=== PATIENT | male | born 1975 | race Caucasian/White ===

== ENCOUNTER 2021-06-30 11:50 | Inpatient (IN) | payer MEDICAID, OTHER, SELFPAY ==
[2021-06-30] VITALS (11 sets, daily range): BP systolic 117–149; BP diastolic 72–88; PULSE 82–125; RESP 13–30; TEMP 37.2–39.7; O2SAT 93–97; BMI 32.5
--- NOTE | 2021-06-30 | ECG_ITS ---
Test Reason : fever Blood Pressure : / mmHG Vent. Rate : 088 BPM Atrial Rate : 088 BPM P-R Int : 170 ms QRS Dur : 106 ms QT Int : 390 ms P-R-T Axes : 037 -01 007 degrees QTc Int : 471 ms Normal sinus rhythm Intra-ventricular conduction delay Minimal voltage criteria for LVH, may be normal variant ( R in aVL ) Borderline ECG When compared with ECG of 30-JUN-2021 14:20, No previous ECGs available Referred By: Harpal Miller Electronically Signed By:JED MARTINEZ MD
--- NOTE | ~2021-06-30 | CT_ITS ---
EXAMINATION: CT CHEST WITH CONTRAST CLINICAL INFORMATION: Persistent fevers. Follow-up pneumonia. COMPARISON: Previous chest x-ray 06/30/2021 TECHNIQUE: Multidetector volumetric CT imaging of the chest was obtained after the administration of 65 mL of Omnipaque 350 intravenous contrast without immediate adverse reactions. Axial MIP volume rendering provided. Sagittal and coronal reformatted images were obtained. This CT examination was performed using dose optimization techniques as appropriate, variously including the following: *Automated exposure control *Adjustment of mA and/or kV according to patient size (this includes techniques or standardized protocols for targeted exams where dose is matched to indication/reason for exam; i.e. extremities or head) *Use of iterative reconstruction technique DLP: 190 mGy-cm FINDINGS: LUNGS: Evaluation of the lungs is limited due to artifact from respiratory motion. There is dense consolidation with air bronchograms in the right lower lobe. There may be some involvement of the superior segment of the right upper lobe as well. The lungs are otherwise clear. No endobronchial or endotracheal lesion is seen. MEDIASTINUM: There are multiple mediastinal lymph nodes. Larger lymph nodes are upper normal in size. Largest lymph node is a subcarinal lymph node. There may be a right hilar lymphadenopathy as well. No left hilar adenopathy is seen. The mediastinum is otherwise normal. PLEURA: There is a small right pleural effusion. There is no left pleural effusion. There is no pneumothorax. AXILLA: No lymphadenopathy. UPPER ABDOMEN: There is diverticulosis of the colon. OSSEOUS STRUCTURES: There are are degenerative changes of the spine. CT/CT chest w con IMPRESSION: Large right lower lobe pneumonia. There may be involvement of the superior segment of the right upper lobe as well. Small right pleural effusion. Mediastinal and right hilar lymphadenopathy, probably reactive. Fleischner guidelines were followed.
--- NOTE | ~2021-06-30 | XR_ITS ---
EXAMINATION: XR CHEST CLINICAL INFORMATION: Pneumonia COMPARISON: None TECHNIQUE: Frontal view of the chest was obtained. FINDINGS: The cardiac and mediastinal contours are normal. There is increased density right lung base/infrahilar region questionable pneumonia. The lungs are otherwise clear. There is no pleural effusion or pneumothorax. There are degenerative changes of the spine. XR/XR chest 1V IMPRESSION: Increased density at the right lung base in the infrahilar region questionable for pneumonia. Follow-up chest x-ray following treatment recommended. If chest x-ray fails to resolve or there is no clinical suspicion of a pneumonia, chest CT the skin with IV contrast would be recommended.
[2021-06-30] MEDS: Acetaminophen 325 MG TABLET 650 MG PO ×2 (13:33→22:16)
[2021-06-30] MEDS: Ibuprofen 800 MG TABLET PO (13:34)
[2021-06-30 13:53] LABS: Strep A Nucleic Acid Negative (Negative)
--- NOTE | 2021-06-30 13:54 | ED.GENADULT ---
HPI - General Adult General Chief complaint: Fever <AILYN Yates Last Filed: 06/30/21 17:22> Stated complaint: fever, body aches, headache <AILYN Yates Last Filed: 06/30/21 17:22> Time Seen by Provider: 06/30/21 13:14 <AILYN Yates Last Filed: 06/30/21 17:22> Source: patient <AILYN Yates Last Filed: 06/30/21 17:22> Mode of arrival: ambulatory <AILYN Yates Last Filed: 06/30/21 17:22> Limitations: no limitations <AILYN Yates Last Filed: 06/30/21 17:22> History of Present Illness HPI narrative: 46-year-old male with no past medical history presents to ED for coughing, shortness of breath, body aches, headache, fever, and chills since Wednesday. Patient states symptoms worsened last night. Patient states no one else at home being sick. Patient states vaccinated for COVID with Moderna over 3 months ago. Patient denies any abdominal pain, or any symptoms. <AILYN Yates Last Filed: 06/30/21 17:22> Related Data Allergies/adverse reactions: Allergies Allergy/AdvReac Type Severity Reaction Status Date / Time No Known Allergies Allergy Verified 06/30/21 13:29 [No Known Allergies*] <AILYN Yates Last Filed: 06/30/21 17:22> Review of Systems Review of Systems: Yes all other systems are reviewed and are negative <AILYN Yates Last Filed: 06/30/21 17:22> Constitutional: Constitutional: Reports as per HPI, Reports no additional constitutional complaints, Reports body ache(s), Reports chills, Reports fatigue, Reports fever(s) and Reports headache(s) <AILYN Yates Last Filed: 06/30/21 17:22> Eyes: Eyes: Reports as per HPI and Reports no additional eye complaints <AILYN Yates Last Filed: 06/30/21 17:22> ENT: Reports system reviewed and no additional complaints, except as documented, Reports as per HPI and Reports headache(s) <AILYN Yates - Last Filed: 06/30/21 17:22> Cardiovascular: Cardiovascular: Reports as per HPI, Reports no additional cardiovascular complaints and Reports dyspnea <AILYN Yates Last Filed: 06/30/21 17:22> Respiratory: Respiratory: Reports as per HPI, Reports no additional respiratory complaints, Reports cough and Reports dyspnea <AILYN Yates - Last Filed: 06/30/21 17:22> Gastrointestinal: Gastrointestinal: Reports as per HPI and Reports no additional gastrointestinal complaints <AILYN Yates Last Filed: 06/30/21 17:22> Genitourinary: Genitourinary: Reports no additional male genitourinary complaints and Reports as per HPI <AILYN Yates Last Filed: 06/30/21 17:22> Musculoskeletal: Musculoskeletal: Reports no additional musculoskeletal complaints and Reports as per HPI <AILYN Yates Last Filed: 06/30/21 17:22> Neurologic: Reports system reviewed and no additional complaints, except as documented, Reports as per HPI and Reports headache(s) <AILYN Yates Last Filed: 06/30/21 17:22> Psychiatric: Psychiatric: Reports no additional psychiatric complaints and Reports as per HPI <AILYN Yates Last Filed: 06/30/21 17:22> Endocrine: Endocrine: Reports fatigue <AILYN Yates Last Filed: 06/30/21 17:22> PMFSH Past Medical History Medical History: Medical History No known health problems <AILYN Yates Last Filed: 06/30/21 17:22> Social History Social History: Social History Alcohol intake: never Smoked in Last 30 Days: No Use of substances other than those prescribed or required for medical reasons: No Advance Directives: No Advance Directives Information Provided: No <AILYN Yates Last Filed: 06/30/21 17:22> Physical Exam Vital Signs: Vital Signs: Last Vital Signs Temp 99.5 F 06/30/21 15:44 Pulse 82 06/30/21 15:44 Resp 21 H 06/30/21 15:44 BP 117/73 06/30/21 15:44 Pulse Ox 96 06/30/21 15:44 Body Mass Index 32.5 <AILYN Yates - Last Filed: 06/30/21 17:22> Vital Signs: Last Vital Signs Temp 99.5 F 06/30/21 15:44 Pulse 82 06/30/21 15:44 Resp 21 H 06/30/21 15:44 BP 117/73 06/30/21 15:44 Pulse Ox 96 06/30/21 15:44 Body Mass Index 32.5 <Harpal Miller MD - Last Filed: 06/30/21 15:36> Const: General: cooperative and lethargic <AILYN Yates - Last Filed: 06/30/21 17:22> Orientation/consciousness: lethargic <AILYN Yates - Last Filed: 06/30/21 17:22> HENMT: Head: Yes normal to inspection, Yes No palpable skull fracture present, Yes normocephalic, Yes atraumatic and No abrasion <AILYN Yates - Last Filed: 06/30/21 17:22> Ears: hearing grossly normal bilaterally and external ears normal <AILYN Yates - Last Filed: 06/30/21 17:22> General nose exam: Normal external nose present and Normal nares present <AILYN Yates - Last Filed: 06/30/21 17:22> Mouth: Normal oral and palatal mucosa present and lip normal <AILYN Yates - Last Filed: 06/30/21 17:22> Throat: Yes posterior oropharynx normal, Yes tonsils normal and Yes uvula midline <AILYN Yates Last Filed: 06/30/21 17:22> Eyes: General: appearance normal, both eyes and all related structures <AILYN Yates - Last Filed: 06/30/21 17:22> Neck: Neck: Yes normal visual inspection, Yes full ROM, Yes no lymphadenopathy, Yes no meningeal signs, Yes trachea midline, Yes supple, No anterior neck swelling and No tender <AILYN Yates Last Filed: 06/30/21 17:22> Chest: Chest palpation & inspection: normal inspection of the chest and normal palpation of entire chest wall <Timmy Orlin, PA Last Filed: 06/30/21 17:22> Resp: Effort & Inspection: normal respiratory effort and able to speak in complete sentences <Timmy Orlin, PA Last Filed: 06/30/21 17:22> Auscultation: clear to auscultation bilaterally <Timmy Orlin, PA Last Filed: 06/30/21 17:22> Cardio: Jugular venous distension: no JVD <Timmy Orlni, PA Last Filed: 06/30/21 17:22> Heart sounds: S1 normal heart sound present and S2 normal heart sound present <Timmy Orlin, PA Last Filed: 06/30/21 17:22> GI: Inspection: Yes normal to inspection and No abdominal wall ecchymosis <Timmy Orlin, [facility] Last Filed: 06/30/21 17:22> Palpation (GI): Soft to palpation, not firm, nontender, no guarding and not rigid <Timmy Orlin, PA - Last Filed: 06/30/21 17:22> : General: No CVA tenderness and Yes no CVA tenderness <Timmy Orlin, PA Last Filed: 06/30/21 17:22> Back/Spine/Pelvis: Back: no CVA tenderness, No CVA tenderness and No back tenderness <Timmy Orlin, PA Last Filed: 06/30/21 17:22> Skin: General skin exam: no rashes or lesions noted and elasticity normal <Timmy Orlin, PA Last Filed: 06/30/21 17:22> Neuro: General: gait normal, tone normal, no meningeal signs and CN's II-XI intact bilaterally <Timmy Orlin, PA Last Filed: 06/30/21 17:22> Cranial nerves: Yes CN's II-XII intact bilaterally <Timmy Orlin, PA Last Filed: 06/30/21 17:22> Extrem: General: Yes normal to inspection and Yes full ROM <AILYN Yates Last Filed: 06/30/21 17:22> Psych: Appearance: grossly normal, well kempt and not disheveled <AILYN Yates Last Filed: 06/30/21 17:22> Course Course Course Narrative: Patient fit SIRS criteria. Sepsis fluid ordered. Chest x-ray, strep swab, SARs COVID swab, and Tylenol ordered. Patient [place] [facility] [place] [address] Mancilla made aware. <AILYN Yates - Last Filed: 06/30/21 17:22> Reevaluation(s) Reevaluation #1: Patient with fever to 103.5 with cough and oxygen to 91% and heart rate to 130. Xray shows RML pneumonia, slight rales anteriorly. Will admit and give Rocephine and azithromax for community acquired pneumonia. <Harpal Miller MD - Last Filed: 06/30/21 15:36> Time: 15:35 <Harpal Miller MD - Last Filed: 06/30/21 15:36> Reevaluation #2: Patient to be admitted for Pneumonia as per xray. Patient to be admitted for pneumonia with SIRS. X-ray shows right-sided pneumonia. Patient on 2 L 96% room air. Negative for white count. Patient received antibiotics. Case discussed with Dr. Miller who states presentation is definite pneumonia and no chest CTA indicated. COVID negative and not suspecting presently PE. <AILYN Yates - Last Filed: 06/30/21 17:22> Time: 16:04 <AILYN Yates - Last Filed: 06/30/21 17:22> Medical Decision Making MDM Narrative Medical decision making narrative: Pneumonia <AILYN Yates - Last Filed: 06/30/21 17:22> Lab Data Result diagrams: : 06/30/21 14:20 06/30/21 14:20 <AILYN Yates - Last Filed: 06/30/21 17:22> Labs: Lab Results 06/30/21 06/30/21 06/30/21 Range/Units 13:35 13:36 14:20 WBC 8.3 (4.8-10.8) X10*3/uL RBC 4.70 (4.60-5.80) X10*6/uL Hgb 15.1 (14.0-18.0) g/dl Hct 41.4 L (42.0-52.0) % MCV 88.1 (80.0-98.0) fL MCH 32.1 (27.0-33.0) pg MCHC 36.5 H (31.0-36.0) g/dl RDW 11.5 (11.0-16.0) % Plt Count 161 (160-400) X10*3/uL MPV 10.1 (9.4-12.4) fL Immature Gran % (Auto) 0.4 (0.0-0.4) % Neut % (Auto) 90.0 H (45-73) % Lymph % (Auto) 5.3 L (20-40) % [place] % (Auto) 4.1 (2-11) % Eos % (Auto) 0.0 (0-4) % Baso % (Auto) 0.2 (0-2) % Lymph # (Auto) 0.4 L (1.2-4.9) X10*3/uL [place] # (Auto) 0.3 (0.1-1.2) X10*3/uL Eos # (Auto) 0.0 (0.0-0.4) X10*3/uL Baso # (Auto) 0.0 (0.0-0.2) X10*3/uL Abs Immat Gran (auto) 0.03 (0.00-0.03) X10*3/uL Absolute Neuts (auto) 7.5 (2.0-8.3) x10*3/uL Absolute Nucleated RBC 0.000 (0.0-0.012) X10*3/uL Nucleated RBC % (auto) 0.0 (0.0-0.2) /100WBC PT (9.9-13.0) SEC INR (0.9-1.1) APTT (24.1-38.0) SEC D-Dimer High Sensitivty NG/ML Sodium (135-145) mmol/L Potassium (3.3-5.1) mmol/L Chloride (96-108) mmol/L Carbon Dioxide (22-29) mmol/L Anion Gap (12-20) BUN (9-16) mg/dL Creatinine (0.5-1.4) mg/dL Estim Creat Clear Calc Estimated GFR Random Glucose (60-115) mg/dL Lactic Acid (0.5-2.0) mmol/L Calcium (8.4-10.2) mg/dL Ferritin (20-250) ng/mL Total Bilirubin (0.0-1.0) mg/dL AST (5-37) U/L ALT (0-40) U/L Alkaline Phosphatase (39-117) U/L Lactate Dehydrogenase (118-273) U/L Total Protein (6.5-8.0) g/dL Albumin (3.5-5.0) g/dL Influenza Type A (PCR) NEGATIVE (Negative) Influenza Type B (PCR) NEGATIVE (Negative) RSV RNA Qual (PCR) NEGATIVE (Negative) SARS-CoV-2 RNA (RT-PCR) NEGATIVE (Negative) S. pyogenes GrpA MELLO Negative (Negative) 06/30/21 06/30/21 06/30/21 Range/Units 14:20 14:20 14:20 WBC (4.8-10.8) X10*3/uL RBC (4.60-5.80) X10*6/uL Hgb (14.0-18.0) g/dl Hct (42.0-52.0) % MCV (80.0-98.0) fL MCH (27.0-33.0) pg MCHC (31.0-36.0) g/dl RDW (11.0-16.0) % Plt Count (160-400) X10*3/uL MPV (9.4-12.4) fL Immature Gran % (Auto) (0.0-0.4) % Neut % (Auto) (45-73) % Lymph % (Auto) (20-40) % [place] % (Auto) (2-11) % Eos % (Auto) (0-4) % Baso % (Auto) (0-2) % Lymph # (Auto) (1.2-4.9) X10*3/uL [place] # (Auto) (0.1-1.2) X10*3/uL Eos # (Auto) (0.0-0.4) X10*3/uL Baso # (Auto) (0.0-0.2) X10*3/uL Abs Immat Gran (auto) (0.00-0.03) X10*3/uL Absolute Neuts (auto) (2.0-8.3) x10*3/uL Absolute Nucleated RBC (0.0-0.012) X10*3/uL Nucleated RBC % (auto) (0.0-0.2) /100WBC PT 13.1 H (9.9-13.0) SEC INR 1.2 H (0.9-1.1) APTT 37.6 (24.1-38.0) SEC D-Dimer High Sensitivty 267 NG/ML Sodium 129 L (135-145) mmol/L Potassium 3.5 (3.3-5.1) mmol/L Chloride 95 L (96-108) mmol/L Carbon Dioxide 21 L (22-29) mmol/L Anion Gap 17 (12-20) BUN 8 L (9-16) mg/dL Creatinine 0.79 (0.5-1.4) mg/dL Estim Creat Clear Calc 105.2 Estimated GFR > 60 Random Glucose 138 H (60-115) mg/dL Lactic Acid 1.2 (0.5-2.0) mmol/L Calcium 8.5 (8.4-10.2) mg/dL Ferritin (20-250) ng/mL Total Bilirubin 0.7 (0.0-1.0) mg/dL AST 39 H (5-37) U/L ALT 33 (0-40) U/L Alkaline Phosphatase 78 (39-117) U/L Lactate Dehydrogenase 249 (118-273) U/L Total Protein 7.4 (6.5-8.0) g/dL Albumin 4.2 (3.5-5.0) g/dL Influenza Type A (PCR) (Negative) Influenza Type B (PCR) (Negative) RSV RNA Qual (PCR) (Negative) SARS-CoV-2 RNA (RT-PCR) (Negative) S. pyogenes GrpA MELLO (Negative) 06/30/21 Range/Units 14:20 WBC (4.8-10.8) X10*3/uL RBC (4.60-5.80) X10*6/uL Hgb (14.0-18.0) g/dl Hct (42.0-52.0) % MCV (80.0-98.0) fL MCH (27.0-33.0) pg MCHC (31.0-36.0) g/dl RDW (11.0-16.0) % Plt Count (160-400) X10*3/uL MPV (9.4-12.4) fL Immature Gran % (Auto) (0.0-0.4) % Neut % (Auto) (45-73) % Lymph % (Auto) (20-40) % [place] % (Auto) (2-11) % Eos % (Auto) (0-4) % Baso % (Auto) (0-2) % Lymph # (Auto) (1.2-4.9) X10*3/uL [place] # (Auto) (0.1-1.2) X10*3/uL Eos # (Auto) (0.0-0.4) X10*3/uL Baso # (Auto) (0.0-0.2) X10*3/uL Abs Immat Gran (auto) (0.00-0.03) X10*3/uL Absolute Neuts (auto) (2.0-8.3) x10*3/uL Absolute Nucleated RBC (0.0-0.012) X10*3/uL Nucleated RBC % (auto) (0.0-0.2) /100WBC PT (9.9-13.0) SEC INR (0.9-1.1) APTT (24.1-38.0) SEC D-Dimer High Sensitivty NG/ML Sodium (135-145) mmol/L Potassium (3.3-5.1) mmol/L Chloride (96-108) mmol/L Carbon Dioxide (22-29) mmol/L Anion Gap (12-20) BUN (9-16) mg/dL Creatinine (0.5-1.4) mg/dL Estim Creat Clear Calc Estimated GFR Random Glucose (60-115) mg/dL Lactic Acid (0.5-2.0) mmol/L Calcium (8.4-10.2) mg/dL Ferritin 513 H (20-250) ng/mL Total Bilirubin (0.0-1.0) mg/dL AST (5-37) U/L ALT (0-40) U/L Alkaline Phosphatase (39-117) U/L Lactate Dehydrogenase (118-273) U/L Total Protein (6.5-8.0) g/dL Albumin (3.5-5.0) g/dL Influenza Type A (PCR) (Negative) Influenza Type B (PCR) (Negative) RSV RNA Qual (PCR) (Negative) SARS-CoV-2 RNA (RT-PCR) (Negative) S. pyogenes GrpA MELLO (Negative) <AILYN Yates - Last Filed: 06/30/21 17:22> Lab Results 06/30/21 06/30/21 06/30/21 Range/Units 13:35 13:36 14:20 WBC 8.3 (4.8-10.8) X10*3/uL RBC 4.70 (4.60-5.80) X10*6/uL Hgb 15.1 (14.0-18.0) g/dl Hct 41.4 L (42.0-52.0) % MCV 88.1 (80.0-98.0) fL MCH 32.1 (27.0-33.0) pg MCHC 36.5 H (31.0-36.0) g/dl RDW 11.5 (11.0-16.0) % Plt Count 161 (160-400) X10*3/uL MPV 10.1 (9.4-12.4) fL Immature Gran % (Auto) 0.4 (0.0-0.4) % Neut % (Auto) 90.0 H (45-73) % Lymph % (Auto) 5.3 L (20-40) % [place] % (Auto) 4.1 (2-11) % Eos % (Auto) 0.0 (0-4) % Baso % (Auto) 0.2 (0-2) % Lymph # (Auto) 0.4 L (1.2-4.9) X10*3/uL [place] # (Auto) 0.3 (0.1-1.2) X10*3/uL Eos # (Auto) 0.0 (0.0-0.4) X10*3/uL Baso # (Auto) 0.0 (0.0-0.2) X10*3/uL Abs Immat Gran (auto) 0.03 (0.00-0.03) X10*3/uL Absolute Neuts (auto) 7.5 (2.0-8.3) x10*3/uL Absolute Nucleated RBC 0.000 (0.0-0.012) X10*3/uL Nucleated RBC % (auto) 0.0 (0.0-0.2) /100WBC PT (9.9-13.0) SEC INR (0.9-1.1) APTT (24.1-38.0) SEC D-Dimer High Sensitivty NG/ML Sodium (135-145) mmol/L Potassium (3.3-5.1) mmol/L Chloride (96-108) mmol/L Carbon Dioxide (22-29) mmol/L Anion Gap (12-20) BUN (9-16) mg/dL Creatinine (0.5-1.4) mg/dL Estim Creat Clear Calc Estimated GFR Random Glucose (60-115) mg/dL Lactic Acid (0.5-2.0) mmol/L Calcium (8.4-10.2) mg/dL Ferritin (20-250) ng/mL Total Bilirubin (0.0-1.0) mg/dL AST (5-37) U/L ALT (0-40) U/L Alkaline Phosphatase (39-117) U/L Lactate Dehydrogenase (118-273) U/L Total Protein (6.5-8.0) g/dL Albumin (3.5-5.0) g/dL Influenza Type A (PCR) NEGATIVE (Negative) Influenza Type B (PCR) NEGATIVE (Negative) RSV RNA Qual (PCR) NEGATIVE (Negative) SARS-CoV-2 RNA (RT-PCR) NEGATIVE (Negative) S. pyogenes GrpA MELLO Negative (Negative) 06/30/21 06/30/21 06/30/21 Range/Units 14:20 14:20 14:20 WBC (4.8-10.8) X10*3/uL RBC (4.60-5.80) X10*6/uL Hgb (14.0-18.0) g/dl Hct (42.0-52.0) % MCV (80.0-98.0) fL MCH (27.0-33.0) pg MCHC (31.0-36.0) g/dl RDW (11.0-16.0) % Plt Count (160-400) X10*3/uL MPV (9.4-12.4) fL Immature Gran % (Auto) (0.0-0.4) % Neut % (Auto) (45-73) % Lymph % (Auto) (20-40) % [place] % (Auto) (2-11) % Eos % (Auto) (0-4) % Baso % (Auto) (0-2) % Lymph # (Auto) (1.2-4.9) X10*3/uL [place] # (Auto) (0.1-1.2) X10*3/uL Eos # (Auto) (0.0-0.4) X10*3/uL Baso # (Auto) (0.0-0.2) X10*3/uL Abs Immat Gran (auto) (0.00-0.03) X10*3/uL Absolute Neuts (auto) (2.0-8.3) x10*3/uL Absolute Nucleated RBC (0.0-0.012) X10*3/uL Nucleated RBC % (auto) (0.0-0.2) /100WBC PT 13.1 H (9.9-13.0) SEC INR 1.2 H (0.9-1.1) APTT 37.6 (24.1-38.0) SEC D-Dimer High Sensitivty 267 NG/ML Sodium 129 L (135-145) mmol/L Potassium 3.5 (3.3-5.1) mmol/L Chloride 95 L (96-108) mmol/L Carbon Dioxide 21 L (22-29) mmol/L Anion Gap 17 (12-20) BUN 8 L (9-16) mg/dL Creatinine 0.79 (0.5-1.4) mg/dL Estim Creat Clear Calc 105.2 Estimated GFR > 60 Random Glucose 138 H (60-115) mg/dL Lactic Acid 1.2 (0.5-2.0) mmol/L Calcium 8.5 (8.4-10.2) mg/dL Ferritin (20-250) ng/mL Total Bilirubin 0.7 (0.0-1.0) mg/dL AST 39 H (5-37) U/L ALT 33 (0-40) U/L Alkaline Phosphatase 78 (39-117) U/L Lactate Dehydrogenase 249 (118-273) U/L Total Protein 7.4 (6.5-8.0) g/dL Albumin 4.2 (3.5-5.0) g/dL Influenza Type A (PCR) (Negative) Influenza Type B (PCR) (Negative) RSV RNA Qual (PCR) (Negative) SARS-CoV-2 RNA (RT-PCR) (Negative) S. pyogenes GrpA MELLO (Negative) 06/30/21 Range/Units 14:20 WBC (4.8-10.8) X10*3/uL RBC (4.60-5.80) X10*6/uL Hgb (14.0-18.0) g/dl Hct (42.0-52.0) % MCV (80.0-98.0) fL MCH (27.0-33.0) pg MCHC (31.0-36.0) g/dl RDW (11.0-16.0) % Plt Count (160-400) X10*3/uL MPV (9.4-12.4) fL Immature Gran % (Auto) (0.0-0.4) % Neut % (Auto) (45-73) % Lymph % (Auto) (20-40) % [place] % (Auto) (2-11) % Eos % (Auto) (0-4) % Baso % (Auto) (0-2) % Lymph # (Auto) (1.2-4.9) X10*3/uL [place] # (Auto) (0.1-1.2) X10*3/uL Eos # (Auto) (0.0-0.4) X10*3/uL Baso # (Auto) (0.0-0.2) X10*3/uL Abs Immat Gran (auto) (0.00-0.03) X10*3/uL Absolute Neuts (auto) (2.0-8.3) x10*3/uL Absolute Nucleated RBC (0.0-0.012) X10*3/uL Nucleated RBC % (auto) (0.0-0.2) /100WBC PT (9.9-13.0) SEC INR (0.9-1.1) APTT (24.1-38.0) SEC D-Dimer High Sensitivty NG/ML Sodium (135-145) mmol/L Potassium (3.3-5.1) mmol/L Chloride (96-108) mmol/L Carbon Dioxide (22-29) mmol/L Anion Gap (12-20) BUN (9-16) mg/dL Creatinine (0.5-1.4) mg/dL Estim Creat Clear Calc Estimated GFR Random Glucose (60-115) mg/dL Lactic Acid (0.5-2.0) mmol/L Calcium (8.4-10.2) mg/dL Ferritin 513 H (20-250) ng/mL Total Bilirubin (0.0-1.0) mg/dL AST (5-37) U/L ALT (0-40) U/L Alkaline Phosphatase (39-117) U/L Lactate Dehydrogenase (118-273) U/L Total Protein (6.5-8.0) g/dL Albumin (3.5-5.0) g/dL Influenza Type A (PCR) (Negative) Influenza Type B (PCR) (Negative) RSV RNA Qual (PCR) (Negative) SARS-CoV-2 RNA (RT-PCR) (Negative) S. pyogenes GrpA MELLO (Negative) <Harpal Miller MD - Last Filed: 06/30/21 15:36> Discharge Plan Discharge Clinical Impression: Community acquired pneumonia <AILYN Yates - Last Filed: 06/30/21 17:22> Patient Disposition: Admitted As Inpatient <AILYN Yates - Last Filed: 06/30/21 17:22>
--- NOTE | 2021-06-30 13:55 | PC.NURSE ---
PT PRESENTED TO ED WITH DYSPNEA ON EXERTION, LETHARGY, BODY ACHES, AND HYPOXIA ON INITIAL VITAL SIGNS. PT PLACED ON 2 LITERS NASAL CANNULA AND MOVED TO ROOM 1 IN ED FOR FURTHER WORK UP. PT SINUS TACH ON [employer] HR 125, DENIES ANY CP, C/O BODY ACHES AND CHILLS SINCE WEDNESDAY. REPORT GIVEN TO MANJINDER LA.
[2021-06-30] MEDS: SODIUM CHLORIDE 2422.17 ML IV (14:21)
[2021-06-30 14:24] LABS: Influenza A PCR NEGATIVE (Negative); Influenza B PCR NEGATIVE (Negative); Resp Syncy Virus RNA Qual PCR NEGATIVE (Negative); SARS COV2 PCR INHOUSE NEGATIVE (Negative)
[2021-06-30 14:35] LABS: MANUAL DIFF FLAG NO
[2021-06-30 14:39] LABS: Basophils Percent Auto 0.2 % (0-2); Hematocrit 41.4 % (42.0-52.0); Hemoglobin 15.1 g/dl (14.0-18.0); Imm Gran Abs Auto 0.03 X10*3/uL (0.00-0.03); Imm Gran Pct Auto 0.4 % (0.0-0.4); Lymphocytes Absolute Auto 0.4 X10*3/uL (1.2-4.9); Lymphocytes Percent Auto 5.3 % (20-40); Mean Corpuscular HGB Conc 36.5 g/dl (31.0-36.0); Mean Corpuscular Hemoglobin 32.1 pg (27.0-33.0); Mean Corpuscular Volume 88.1 fL (80.0-98.0); Mean Platelet Volume 10.1 fL (9.4-12.4); Monocytes Absolute Auto 0.3 X10*3/uL (0.1-1.2); Monocytes Percent Auto 4.1 % (2-11); Neutrophils Absolute Auto 7.5 x10*3/uL (2.0-8.3); Platelet Count 161 X10*3/uL (160-400); Red Cell Distribution Width 11.5 % (11.0-16.0); White Blood Count 8.3 X10*3/uL (4.8-10.8)
[2021-06-30] MEDS: cefTRIAXone sodium 1 GM in 0.9 % Sodium Chloride 50 ML IV (14:45)
[2021-06-30 14:47] LABS: INTERNATIONAL NORM RATIO 1.2 (0.9-1.1); Prothrombin Time 13.1 SEC (9.9-13.0)
[2021-06-30 14:49] LABS: D Dimer High Sensitivity 267 NG/ML
[2021-06-30 14:50] LABS: Partial Thromboplastin Time 37.6 SEC (24.1-38.0)
[2021-06-30 14:52] LABS: Lactic Acid 1.2 mmol/L (0.5-2.0)
[2021-06-30 14:55] LABS: Alanine Aminotransferase 33 U/L (0-40); Albumin Level 4.2 g/dL (3.5-5.0); Alkaline Phosphatase 78 U/L (39-117); Anion Gap 17 (12-20); Aspartate Amino Transferase 39 U/L (5-37); Bilirubin Total 0.7 mg/dL (0.0-1.0); Blood Urea Nitrogen 8 mg/dL (9-16); Calcium 8.5 mg/dL (8.4-10.2); Carbon Dioxide 21 mmol/L (22-29); Chloride 95 mmol/L (96-108); Creatinine Clr Calc Pharmacy 105.2; Estimated Glomerular Filt Rate > 60; Glucose Random 138 mg/dL (60-115); Lactate Dehydrogenase 249 U/L (118-273); Potassium 3.5 mmol/L (3.3-5.1); Sodium 129 mmol/L (135-145); Total Protein 7.4 g/dL (6.5-8.0)
[2021-06-30 15:16] LABS: Ferritin 513 ng/mL (20-250)
[2021-06-30] MEDS: Azithromycin 500 MG in 0.9 % Sodium Chloride 250 ML 125 MG IV (15:26)
--- NOTE | 2021-06-30 16:04 | PM.IMHP ---
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 He starts her biking fevers 2 days ago and has been constant since then. In the emergency and chest x-ray was consistent with pneumonia. Admitted to the hospital for IV antibiotic treatment and monitoring. Review of Systems Review of Systems: Reporting fever, chills And generalized weakness No chest pain, palpitation Having shortness of breath and cough No abdominal pain, nausea or vomiting No urinary symptoms No any rash or wounds PMFSH Medical History No known health problems Social History Alcohol intake: never Smoked in Last 30 Days: No Use of substances other than those prescribed or required for medical reasons: No Advance Directives: No Advance Directives Information Provided: No Meds Allergies Allergy/AdvReac Type Severity Reaction Status Date / Time No Known Allergies Allergy Verified 06/30/21 13:29 [No Known Allergies*] Active Medications: Current Medications Azithromycin 500 mg/ Sodium (Chloride) 250 mls @ 125 mls/hr IV ONCE ONE Stop: 06/30/21 16:30 Last Admin: 06/30/21 15:26 Dose: 125 mls/hr Documented by: Physical Exam Vital Signs and Narrative: Vital Signs: Last Vital Signs Temp 99.5 F 06/30/21 15:44 Pulse 82 06/30/21 15:44 Resp 21 H 06/30/21 15:44 BP 117/73 06/30/21 15:44 Pulse Ox 96 06/30/21 15:44 Body Mass Index 32.5 Const: Other: Constitutional : Alert, oriented, not in distress Neck : Normal inspection, Supple Cardiovascular : RRR, S1 S2, no lower extremity edema Respiratory : Fair bilateral air entry, Based bilateral crackles, no wheezes or rhonchi Gastrointestinal: soft, lax, Normal bowel sounds, Non tender Skin : Warm, Dry Neurological : Alert & oriented x3, No focal deficit Results Labs CBC and Chem 7: 06/30/21 14:20 06/30/21 14:20 Labs: Laboratory Results - last 24 hr 06/30/21 06/30/21 06/30/21 13:35 13:36 14:20 MCV 88.1 MCH 32.1 MCHC 36.5 H RDW 11.5 Plt Count 161 MPV 10.1 Immature Gran % (Auto) 0.4 Neut % (Auto) 90.0 H Lymph % (Auto) 5.3 L [place] % (Auto) 4.1 Eos % (Auto) 0.0 Baso % (Auto) 0.2 Lymph # (Auto) 0.4 L [place] # (Auto) 0.3 Eos # (Auto) 0.0 Baso # (Auto) 0.0 Abs Immat Gran (auto) 0.03 Absolute Neuts (auto) 7.5 Absolute Nucleated RBC 0.000 Nucleated RBC % (auto) 0.0 PT INR APTT D-Dimer High Sensitivty Anion Gap Estim Creat Clear Calc Estimated GFR Random Glucose Lactic Acid Calcium Ferritin Total Bilirubin AST ALT Alkaline Phosphatase Lactate Dehydrogenase Total Protein Albumin Influenza Type A (PCR) NEGATIVE Influenza Type B (PCR) NEGATIVE RSV RNA Qual (PCR) NEGATIVE SARS-CoV-2 RNA (RT-PCR) NEGATIVE S. pyogenes GrpA MELLO Negative 06/30/21 06/30/21 06/30/21 14:20 14:20 14:20 MCV MCH MCHC RDW Plt Count MPV Immature Gran % (Auto) Neut % (Auto) Lymph % (Auto) [place] % (Auto) Eos % (Auto) Baso % (Auto) Lymph # (Auto) [place] # (Auto) Eos # (Auto) Baso # (Auto) Abs Immat Gran (auto) Absolute Neuts (auto) Absolute Nucleated RBC Nucleated RBC % (auto) PT 13.1 H INR 1.2 H APTT 37.6 D-Dimer High Sensitivty 267 Anion Gap 17 Estim Creat Clear Calc 105.2 Estimated GFR > 60 Random Glucose 138 H Lactic Acid 1.2 Calcium 8.5 Ferritin Total Bilirubin 0.7 AST 39 H ALT 33 Alkaline Phosphatase 78 Lactate Dehydrogenase 249 Total Protein 7.4 Albumin 4.2 Influenza Type A (PCR) Influenza Type B (PCR) RSV RNA Qual (PCR) SARS-CoV-2 RNA (RT-PCR) S. pyogenes GrpA MELLO 06/30/21 14:20 MCV MCH MCHC RDW Plt Count MPV Immature Gran % (Auto) Neut % (Auto) Lymph % (Auto) [place] % (Auto) Eos % (Auto) Baso % (Auto) Lymph # (Auto) [place] # (Auto) Eos # (Auto) Baso # (Auto) Abs Immat Gran (auto) Absolute Neuts (auto) Absolute Nucleated RBC Nucleated RBC % (auto) PT INR APTT D-Dimer High Sensitivty Anion Gap Estim Creat Clear Calc Estimated GFR Random Glucose Lactic Acid Calcium Ferritin 513 H Total Bilirubin AST ALT Alkaline Phosphatase Lactate Dehydrogenase Total Protein Albumin Influenza Type A (PCR) Influenza Type B (PCR) RSV RNA Qual (PCR) SARS-CoV-2 RNA (RT-PCR) S. pyogenes GrpA MELLO Imaging Radiologist's Impressions: Impressions Chest X-Ray 06/30/21 13:26 IMPRESSION: Increased density at the right lung base in the infrahilar region questionable for pneumonia. Follow-up chest x-ray following treatment recommended. If chest x-ray fails to resolve or there is no clinical suspicion of a pneumonia, chest CT the skin with IV contrast would be recommended. 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
[2021-06-30] MEDS: Enoxaparin Sodium 40 MG/0.4 ML SYRINGE SUBCUT (16:18)
[2021-06-30] MEDS: guaiFENesin LA 600 MG TAB.ER.12H PO ×2 (16:18→22:54)
[2021-06-30] MEDS: 0.9 % Sodium Chloride 1,000 ML 100 ML IVCONT (16:24)
[2021-07-01] VITALS: BP 144/87; PULSE 100; RESP 18; TEMP 37.9; O2SAT 96
[2021-07-01] MEDS: 0.9 % Sodium Chloride 1,000 ML 100 ML IVCONT (02:35)
[2021-07-01 04:00] VITALS: BP 152/81; PULSE 94; RESP 22; TEMP 38.2; O2SAT 96
[2021-07-01] MEDS: Ibuprofen 400 MG TABLET PO ×3 (05:36→20:58)
[2021-07-01 05:46] LABS: Hemoglobin 13.5 g/dl (14.0-18.0); Mean Corpuscular HGB Conc 35.5 g/dl (31.0-36.0); Mean Corpuscular Hemoglobin 31.3 pg (27.0-33.0); Mean Corpuscular Volume 88.2 fL (80.0-98.0); Mean Platelet Volume 10.1 fL (9.4-12.4); Platelet Count 145 X10*3/uL (160-400); Red Blood Count 4.31 X10*6/uL (4.60-5.80); Red Cell Distribution Width 11.5 % (11.0-16.0); White Blood Count 5.3 X10*3/uL (4.8-10.8)
[2021-07-01 06:09] LABS: Anion Gap 12 (12-20); Blood Urea Nitrogen 7 mg/dL (9-16); Calcium 7.6 mg/dL (8.4-10.2); Carbon Dioxide 20 mmol/L (22-29); Chloride 101 mmol/L (96-108); Creatinine Clr Calc Pharmacy 127.8; Estimated Glomerular Filt Rate > 60; Glucose Random 117 mg/dL (60-115); Potassium 3.4 mmol/L (3.3-5.1); Sodium 130 mmol/L (135-145)
[2021-07-01] MEDS: guaiFENesin LA 600 MG TAB.ER.12H PO ×2 (07:41→20:45)
[2021-07-01 07:43] VITALS: BP 155/80; PULSE 77; RESP 16; TEMP 36.8; O2SAT 98
--- NOTE | 2021-07-01 09:00 | MHC.CM.PN ---
CM met with Patient at bedside. Patient lives in an apartment with his and 3 children ages 18 months-17 years of age (1 adult Daughter is in college and living outside the home). Patient is independent and working and his goal is to return home/no services (he does not use home O2) and CM has initiated and will follow for dc planning. PCP is Dr. Adriana Pollack.
--- NOTE | 2021-07-01 10:22 | P.PNIM_ITS ---
Subjective Subjective Date of Service: 07/01/21 Interval History: The patient was seen and evaluated this morning Laying in bed, feels better but still requiring oxygen supplement Denies any fever, chills but still has shortness of breath No reported other overnight events. Systemic review: No fever, chills or weakness No chest pain, palpitation Reporting shortness of breath and coughing No abdominal pain, nausea or vomiting No urinary symptoms No any rash or wounds Physical Exam Vital Signs: Vital Signs: Last Vital Signs Temp 98.3 F 07/01/21 07:43 Pulse 77 07/01/21 07:43 Resp 16 07/01/21 07:43 BP 155/80 H 07/01/21 07:43 Pulse Ox 98 07/01/21 07:43 Body Mass Index 32.5 Const: Other: Constitutional : Alert, oriented, not in distress Neck : Normal inspection, Supple Cardiovascular : RRR, S1 S2, no lower extremity edema Respiratory : Fair bilateral air entry, Based bilateral crackles, no wheezes or rhonchi Gastrointestinal: soft, lax, Normal bowel sounds, Non tender Skin : Warm, Dry Neurological : Alert & oriented x3, No focal deficit Objective Data Active Medications Acetaminophen (Acetaminophen 325 Mg Tablet) 650 mg PO Q6H PRN PRN Reason: Pain, Mild (Pain Scale 1-3) Last Admin: 06/30/21 22:16 Dose: 650 mg Documented by: TIFFANIE Enoxaparin Sodium (Enoxaparin Sodium 40 Mg/0.4 Ml Syringe) 40 mg SUBCUT Q24H [facility] Last Admin: 06/30/21 16:18 Dose: 40 mg Documented by: MARLINE Guaifenesin (Guaifenesin La 600 Mg Tab.Er.12h) 600 mg PO BID [facility] Last Admin: 07/01/21 07:41 Dose: 600 mg Documented by: SHALA Sodium Chloride (Ns) 1,000 mls @ 100 mls/hr IVCONT .Q10H [facility] Last Admin: 07/01/21 02:35 Dose: 100 mls/hr Documented by: ANAMARIA Ceftriaxone Sodium 1 gm/ (Sodium Chloride) 50 mls @ 100 mls/hr IV Q24H [facility] Azithromycin 500 mg/ Sodium (Chloride) 250 mls @ 125 mls/hr IV Q24H [facility] Ibuprofen (Ibuprofen 400 Mg Tablet) 400 mg PO Q6H PRN PRN Reason: Fever or Pain, Mild (Pain Scale 1-3) Last Admin: 07/01/21 05:36 Dose: 400 mg Documented by: ANAMARIA Ondansetron HCl (Ondansetron Hcl 4 Mg/2 Ml Vial) 4 mg IVPUSH Q8H PRN PRN Reason: Nausea and Vomiting Sodium Chloride (0.9 % Sodium Chloride Flush 3 Ml Syringe) 3 ml IVFLUSH QSHIFT [facility] Last Admin: 07/01/21 07:37 Dose: Not Given Documented by: SHALA Non-Admin Reason: IV Running Labs CBC & Chem 7: 07/01/21 05:28 07/01/21 05:28 Labs: Laboratory Results - last 24 hr 06/30/21 06/30/21 06/30/21 13:35 13:36 14:20 MCV 88.1 MCH 32.1 MCHC 36.5 H RDW 11.5 Plt Count 161 MPV 10.1 Immature Gran % (Auto) 0.4 Neut % (Auto) 90.0 H Lymph % (Auto) 5.3 L [place] % (Auto) 4.1 Eos % (Auto) 0.0 Baso % (Auto) 0.2 Lymph # (Auto) 0.4 L [place] # (Auto) 0.3 Eos # (Auto) 0.0 Baso # (Auto) 0.0 Abs Immat Gran (auto) 0.03 Absolute Neuts (auto) 7.5 Absolute Nucleated RBC 0.000 Nucleated RBC % (auto) 0.0 PT INR APTT D-Dimer High Sensitivty Anion Gap Estim Creat Clear Calc Estimated GFR Random Glucose Lactic Acid Calcium Ferritin Total Bilirubin AST ALT Alkaline Phosphatase Lactate Dehydrogenase Total Protein Albumin Influenza Type A (PCR) NEGATIVE Influenza Type B (PCR) NEGATIVE RSV RNA Qual (PCR) NEGATIVE SARS-CoV-2 RNA (RT-PCR) NEGATIVE S. pyogenes GrpA MELLO Negative 06/30/21 06/30/21 06/30/21 14:20 14:20 14:20 MCV MCH MCHC RDW Plt Count MPV Immature Gran % (Auto) Neut % (Auto) Lymph % (Auto) [place] % (Auto) Eos % (Auto) Baso % (Auto) Lymph # (Auto) [place] # (Auto) Eos # (Auto) Baso # (Auto) Abs Immat Gran (auto) Absolute Neuts (auto) Absolute Nucleated RBC Nucleated RBC % (auto) PT 13.1 H INR 1.2 H APTT 37.6 D-Dimer High Sensitivty 267 Anion Gap 17 Estim Creat Clear Calc 105.2 Estimated GFR > 60 Random Glucose 138 H Lactic Acid 1.2 Calcium 8.5 Ferritin Total Bilirubin 0.7 AST 39 H ALT 33 Alkaline Phosphatase 78 Lactate Dehydrogenase 249 Total Protein 7.4 Albumin 4.2 Influenza Type A (PCR) Influenza Type B (PCR) RSV RNA Qual (PCR) SARS-CoV-2 RNA (RT-PCR) S. pyogenes GrpA MELLO 06/30/21 07/01/21 07/01/21 14:20 05:28 05:28 MCV 88.2 MCH 31.3 MCHC 35.5 RDW 11.5 Plt Count 145 L MPV 10.1 Immature Gran % (Auto) Neut % (Auto) Lymph % (Auto) [place] % (Auto) Eos % (Auto) Baso % (Auto) Lymph # (Auto) [place] # (Auto) Eos # (Auto) Baso # (Auto) Abs Immat Gran (auto) Absolute Neuts (auto) Absolute Nucleated RBC 0.000 Nucleated RBC % (auto) 0.0 PT INR APTT D-Dimer High Sensitivty Anion Gap 12 Estim Creat Clear Calc 127.8 Estimated GFR > 60 Random Glucose 117 H Lactic Acid Calcium 7.6 L D Ferritin 513 H Total Bilirubin AST ALT Alkaline Phosphatase Lactate Dehydrogenase Total Protein Albumin Influenza Type A (PCR) Influenza Type B (PCR) RSV RNA Qual (PCR) SARS-CoV-2 RNA (RT-PCR) S. 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
[2021-07-01] MEDS: Acetaminophen 325 MG TABLET 650 MG PO ×2 (10:44→18:29)
[2021-07-01 11:33] LABS: Osmolality Urine 135 mosm/kg (373-1093)
[2021-07-01 11:34] LABS: Sodium Urine Random < 20.0 mmol/L
[2021-07-01 11:48] VITALS: BP 129/70; PULSE 87; RESP 19; TEMP 38.2; O2SAT 97
[2021-07-01] MEDS: cefTRIAXone sodium 1 GM in 0.9 % Sodium Chloride 50 ML IV (14:02)
[2021-07-01] MEDS: Azithromycin 500 MG in 0.9 % Sodium Chloride 250 ML 125 MG IV (14:02)
[2021-07-01] MEDS: 0.9 % Sodium Chloride Flush 3 ML SYRINGE IVFLUSH (14:03)
[2021-07-01 16:00] VITALS: BP 122/68; PULSE 85; RESP 18; TEMP 36.8; O2SAT 96
[2021-07-01] MEDS: Enoxaparin Sodium 40 MG/0.4 ML SYRINGE SUBCUT (16:35)
[2021-07-01 20:00] VITALS: BP 128/70; PULSE 80; RESP 18; TEMP 36.9; O2SAT 97
[2021-07-02] VITALS (9 sets, daily range): BP systolic 113–152; BP diastolic 58–89; PULSE 69–90; RESP 17–18; TEMP 36.1–39.4; O2SAT 94–97
[2021-07-02] MEDS: 0.9 % Sodium Chloride Flush 3 ML SYRINGE IVFLUSH ×4 (01:24→20:52)
[2021-07-02 06:13] LABS: Anion Gap 13 (12-20); Blood Urea Nitrogen 7 mg/dL (9-16); Calcium 7.8 mg/dL (8.4-10.2); Carbon Dioxide 21 mmol/L (22-29); Chloride 101 mmol/L (96-108); Creatinine Clr Calc Pharmacy 129.8; Estimated Glomerular Filt Rate > 60; Glucose Random 111 mg/dL (60-115); Potassium 3.5 mmol/L (3.3-5.1); Sodium 131 mmol/L (135-145)
[2021-07-02] MEDS: guaiFENesin LA 600 MG TAB.ER.12H PO ×2 (07:46→20:51)
[2021-07-02] MEDS: Acetaminophen 325 MG TABLET 650 MG PO ×2 (07:46→19:09)
[2021-07-02] MEDS: Ketorolac Tromethamine 15 MG/ML VIAL IVPUSH (09:31)
--- NOTE | 2021-07-02 11:56 | P.PNIM_ITS ---
Subjective Subjective Date of Service: 07/02/21 Interval History: The patient was seen and evaluated this morning Laying in bed, having fevers and feeling headaches Reporting cough and breathing has been stable No reported other overnight events. Systemic review: No fever, chills or weakness No chest pain, palpitation Reporting shortness of breath and coughing No abdominal pain, nausea or vomiting No urinary symptoms No any rash or wounds Physical Exam Vital Signs: Vital Signs: Last Vital Signs Temp 98.0 F 07/02/21 09:31 Pulse 90 07/02/21 07:13 Resp 18 07/02/21 07:13 BP 152/89 H 07/02/21 07:13 Pulse Ox 95 07/02/21 07:13 Body Mass Index 32.5 Const: Other: Constitutional : Alert, oriented, not in distress Neck : Normal inspection, Supple Cardiovascular : RRR, S1 S2, no lower extremity edema Respiratory : Fair bilateral air entry, Based bilateral crackles, no wheezes or rhonchi Gastrointestinal: soft, lax, Normal bowel sounds, Non tender Skin : Warm, Dry Neurological : Alert & oriented x3, No focal deficit Objective Data Active Medications Acetaminophen (Acetaminophen 325 Mg Tablet) 650 mg PO Q6H PRN PRN Reason: Pain, Mild (Pain Scale 1-3) Last Admin: 07/02/21 07:46 Dose: 650 mg Documented by: GEORGIE Enoxaparin Sodium (Enoxaparin Sodium 40 Mg/0.4 Ml Syringe) 40 mg SUBCUT Q24H [facility] Last Admin: 07/01/21 16:35 Dose: 40 mg Documented by: SHALA Guaifenesin (Guaifenesin [place] 600 Mg Tab.Er.12h) 600 mg PO BID [facility] Last Admin: 07/02/21 07:46 Dose: 600 mg Documented by: GEORGIE Ceftriaxone Sodium 1 gm/ (Sodium Chloride) 50 mls @ 100 mls/hr IV Q24H [facility] Last Infusion: 07/01/21 14:34 Dose: 0 mls/hr Documented by: SHALA Azithromycin 500 mg/ Sodium (Chloride) 250 mls @ 125 mls/hr IV Q24H [facility] Last Infusion: 07/01/21 16:36 Dose: 0 mls/hr Documented by: SHALA Ibuprofen (Ibuprofen 400 Mg Tablet) 400 mg PO Q6H PRN PRN Reason: Fever or Pain, Mild (Pain Scale 1-3) Last Admin: 07/01/21 20:58 Dose: 400 mg Documented by: ONEL Ondansetron HCl (Ondansetron Hcl 4 Mg/2 Ml Vial) 4 mg IVPUSH Q8H PRN PRN Reason: Nausea and Vomiting Sodium Chloride (0.9 % Sodium Chloride Flush 3 Ml Syringe) 3 ml IVFLUSH QSHIFT [facility] Last Admin: 07/02/21 07:46 Dose: 3 ml Documented by: GEORGIE Labs CBC & Chem 7: 07/01/21 05:28 07/02/21 05:26 Labs: Laboratory Results - last 24 hr 07/02/21 05:26 Anion Gap 13 Estim Creat Clear Calc 129.8 Estimated GFR > 60 Random Glucose 111 Calcium 7.8 L Microbiology Microbiology Results: Microbiology 06/30/21 14:20 Blood Culture - Preliminary Blood - Venous No growth after 24 hours. 06/30/21 14:14 Blood Culture - Preliminary Blood - Venous No growth after 24 hours. 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
[2021-07-02] MEDS: Butalb/Acetamin/Caff 50/325/40 TABLET 1 TAB PO (12:43)
--- NOTE | 2021-07-02 14:06 | P.CNID_ITS ---
History of Present Illness Data of Consult Service Date: 07/02/21 Requesting physician: Mikhail Rivera Primary Care Provider: Adriana Pollack DO HPI Reason for consult: shortness of breath He reports shortness of breath and cough and chills for five days. He has no nausea or vomiting He has no known HIV risk He has RML pneumonia Review of Systems Review of Systems: Yes all other systems are reviewed and are negative PMFSH Past Medical History Medical History No known health problems Family History Family history: reviewed and not pertinent Social History Social History Household Members: Spouse Housing: Apartment Do you presently have visiting nurse or other home services: No Alcohol intake: never Patient Tobacco Use Status: Never used Tobacco Smoked in Last 30 Days: No Use of substances other than those prescribed or required for medical reasons: No Currently Displaying Signs/Symptoms of Drug Intoxication Withdrawal: No Have you been hit, kicked, punched, or otherwise hurt by someone within the past year? If so, by whom?: No Do you feel safe in your current relationship?: No Is there a partner from a previous relationship who is making you feel unsafe now?: No Are you made to feel afraid or neglected: No Advance Directives: No Advance Directives Information Provided: No Do you have thoughts of harming others: None Do you have a plan to hurt others: No Plan Nutrition Risks: No Nutritional Risk service: No Current occupational status: employed Meds Allergies Allergy/AdvReac Type Severity Reaction Status Date / Time No Known Allergies Allergy Verified 06/30/21 13:29 [No Known Allergies*] Active Medications: Current Medications Acetaminophen (Acetaminophen 325 Mg Tablet) 650 mg PO Q6H PRN PRN Reason: Pain, Mild (Pain Scale 1-3) Last Admin: 07/02/21 07:46 Dose: 650 mg Documented by: Enoxaparin Sodium (Enoxaparin Sodium 40 Mg/0.4 Ml Syringe) 40 mg SUBCUT Q24H [facility] Last Admin: 07/01/21 16:35 Dose: 40 mg Documented by: Guaifenesin (Guaifenesin [place] 600 Mg Tab.Er.12h) 600 mg PO BID [facility] Last Admin: 07/02/21 07:46 Dose: 600 mg Documented by: Ceftriaxone Sodium 1 gm/ (Sodium Chloride) 50 mls @ 100 mls/hr IV Q24H [facility] Last Infusion: 07/01/21 14:34 Dose: Infused Documented by: Azithromycin 500 mg/ Sodium (Chloride) 250 mls @ 125 mls/hr IV Q24H [facility] Last Infusion: 07/01/21 16:36 Dose: Infused Documented by: Ibuprofen (Ibuprofen 400 Mg Tablet) 400 mg PO Q6H PRN PRN Reason: Fever or Pain, Mild (Pain Scale 1-3) Last Admin: 07/01/21 20:58 Dose: 400 mg Documented by: Ondansetron HCl (Ondansetron Hcl 4 Mg/2 Ml Vial) 4 mg IVPUSH Q8H PRN PRN Reason: Nausea and Vomiting Sodium Chloride (0.9 % Sodium Chloride Flush 3 Ml Syringe) 3 ml IVFLUSH QSHIFT [facility] Last Admin: 07/02/21 07:46 Dose: 3 ml Documented by: Physical Exam Vital Signs: Vital Signs: Last Vital Signs Temp 97.8 F 07/02/21 12:00 Pulse 74 07/02/21 12:00 Resp 17 07/02/21 12:00 BP 138/58 L 07/02/21 12:00 Pulse Ox 96 07/02/21 12:00 Body Mass Index 32.5 Const: General: cooperative Orientation/consciousness: patient oriented x3 Eyes: General: appearance normal, both eyes and all related structures Resp: Other: rhonchi bases Cardio: Rate: regular rate Rhythm: regular rhythm GI: Palpation (GI): Soft to palpation and nontender Skin: General skin exam: no rashes or lesions noted Neuro: General: patient oriented x3 Results Labs CBC & Chem 7: 07/01/21 05:28 07/02/21 05:26 Labs: BMP 07/02/21 05:26 Sodium 131 L Potassium 3.5 Chloride 101 Carbon Dioxide 21 L BUN 7 L Creatinine 0.64 Calcium 7.8 L Microbiology Microbiology Results: Microbiology 06/30/21 14:20 Blood - Venous Blood Culture - Preliminary No growth after 24 hours. 06/30/21 14:14 Blood - Venous Blood Culture - Preliminary No growth after 24 hours. Assessment and Plan (1) Community acquired pneumonia: Status: Acute Concern over strep pneumonia, atypical organisms Ceftriaxone and Zmax or Levaquin ,five days and change to po if doing well D-dimer follow and check CTA if positive Check HIV test
[2021-07-02] MEDS: cefTRIAXone sodium 1 GM in 0.9 % Sodium Chloride 50 ML IV (14:23)
[2021-07-02] MEDS: iohexoL 350 MG/ML 100 ML INFUS..BTL IV (14:42)
[2021-07-02] MEDS: Azithromycin 500 MG in 0.9 % Sodium Chloride 250 ML 125 MG IV (15:07)
[2021-07-02] MEDS: Enoxaparin Sodium 40 MG/0.4 ML SYRINGE SUBCUT (15:08)
[2021-07-03 03:34] VITALS: BP 132/86; PULSE 82; RESP 18; TEMP 37.4; O2SAT 96
[2021-07-03 05:58] LABS: Hematocrit 37.7 % (42.0-52.0); Hemoglobin 13.6 g/dl (14.0-18.0); Mean Corpuscular HGB Conc 36.1 g/dl (31.0-36.0); Mean Corpuscular Hemoglobin 31.5 pg (27.0-33.0); Mean Corpuscular Volume 87.3 fL (80.0-98.0); Mean Platelet Volume 10.4 fL (9.4-12.4); Platelet Count 202 X10*3/uL (160-400); Red Blood Count 4.32 X10*6/uL (4.60-5.80); Red Cell Distribution Width 11.6 % (11.0-16.0); White Blood Count 4.2 X10*3/uL (4.8-10.8)
[2021-07-03 06:20] LABS: Anion Gap 16 (12-20); Blood Urea Nitrogen 7 mg/dL (9-16); Carbon Dioxide 21 mmol/L (22-29); Chloride 98 mmol/L (96-108); Creatinine Clr Calc Pharmacy 118.7; Estimated Glomerular Filt Rate > 60; Glucose Random 96 mg/dL (60-115); Potassium 3.7 mmol/L (3.3-5.1); Sodium 131 mmol/L (135-145)
[2021-07-03 07:30] VITALS: BP 119/75; PULSE 77; RESP 17; TEMP 36.8; O2SAT 96
[2021-07-03] MEDS: 0.9 % Sodium Chloride Flush 3 ML SYRINGE IVFLUSH (09:36)
[2021-07-03] MEDS: guaiFENesin LA 600 MG TAB.ER.12H PO (09:36)
[2021-07-03 10:35] LABS: HIV AB/AG Nonreactive (Nonreactive); HIV Num 1 0.06 S/CO (0.00-0.99)
--- NOTE | 2021-07-03 10:59 | P.DS_ITS ---
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 He reports his been doing well until when he started to feel difficulty breathing and start having cough associated with general weakness and feeling sick.? He starts her biking fevers 2 days ago and has been constant since then. In the emergency and chest x-ray was consistent with pneumonia. Admitted to the hospital for IV antibiotic treatment and monitoring. Hospital course Patient was admitted to the hospital for treatment of difficulty breathing and fever. Found to have pneumonia on chest x-ray. Treated with IV antibiotics of azithromycin and ceftriaxone with fair response over the course of hospital stay as blood cultures remain negative. Evaluated by infectious disease specialist who recommended to continue with oral antibiotic at time of discharge. His blood work was consistent with hyponatremia with sodium around 130 improved to 131 during the hospital stay. To repeat BMP in 1 week To be discharged home on azithromycin and Ceftin for 5 more days. Time Spent with Patient Time attestation: Total time spent providing and/or coordinating discharge services: Discharge coordination time: Greater than 30 minutes Quality: Stroke Does the patient have a stroke diagnosis?: No Physical Exam Vital Signs: Vital Signs: Last Vital Signs Temp 98.3 F 07/03/21 07:30 Pulse 77 07/03/21 07:30 Resp 17 07/03/21 07:30 BP 119/75 07/03/21 07:30 Pulse Ox 96 07/03/21 07:30 Body Mass Index 32.5 Const: Other: Constitutional : Alert, oriented, not in distress Neck : Normal inspection, Supple Cardiovascular : RRR, S1 S2, no lower extremity edema Respiratory : Fair bilateral air entry, Based bilateral crackles, no wheezes or rhonchi Gastrointestinal: soft, lax, Normal bowel sounds, Non tender Skin : Warm, Dry Neurological : Alert & oriented x3, No focal deficit DS: Data Data Completed and Pending Labs on day of discharge: Laboratory Results - last 24 hr 07/02/21 07/03/21 07/03/21 05:26 05:14 05:15 WBC 4.2 L RBC 4.32 L Hgb 13.6 L Hct 37.7 L MCV 87.3 MCH 31.5 MCHC 36.1 H RDW 11.6 Plt Count 202 D MPV 10.4 Absolute Nucleated RBC 0.000 Nucleated RBC % (auto) 0.0 Sodium 131 L Potassium 3.7 Chloride 98 Carbon Dioxide 21 L Anion Gap 16 BUN 7 L Creatinine 0.70 Estim Creat Clear Calc 118.7 Estimated GFR > 60 Random Glucose 96 Calcium 8.0 L HIV 1&2 Ab/P24 Ag 4thGn Nonreactive Preliminary micro results at discharge 06/30/21 14:20 Blood Culture - Preliminary Blood - Venous No growth after 48 hours. 06/30/21 14:14 Blood Culture - Preliminary Blood - Venous No growth after 48 hours. Discharge Plan Discharge Patient Disposition: Home, Self-Care Discharge Diagnosis: Pneumonia Low sodium level Referrals: Adriana Pollack DO [Primary Care Provider] - 1 Week Discharge Medications: New azithromycin 500 mg tablet 500 mg PO DAILY 5 Days Qty: 5 RF: 0 cefuroxime axetil 500 mg tablet 500 mg PO BID Qty: 10 RF: 0 guaifenesin [Mucinex] 600 mg Tablet Extended Release 12hr 600 mg PO BID 7 Days Qty: 14 RF: 0 Discharge Orders: Discharge Order (Routine); Ordered 07/03/21 Ordered By: Mikhail Rivera Diet: advance to usual diet Activity on Discharge: As tolerated Stand Alone Forms: Patient Portal Discharge page Other Ambulatory Orders: Basic Metabolic Panel (Routine) Timeframe: 1 Week Facility: [facility] - Location: Laboratory Ordered By: Mikhail Rivera Care Plan Goals: Read below Health Concerns: Read below Plan of Treatment: Read below Assessment: You were admitted to the hospital for evaluation of pneumonia. Images including CXR and CT scan were done showing right-sided large pneumonia. with IV antibiotics with good responseOver the course of hospital stay. Evaluated by infectious disease specialist who recommended to continue antibiotics orally. To finish Ceftin and azithromycin for 5 more days To repeat blood test as outpatient
--- NOTE | 2021-07-03 11:19 | MHC.CM.PN ---
PT CLEARED TO DC HOME TODAY WITH NO SERVICES. PT TO ARRANGE TRANSPORT
[2021-07-03 11:22] VITALS: BP 121/79; PULSE 94; RESP 18; TEMP 37.2; O2SAT 94
[2021-07-04 22:56] LABS: Strep Pneumo Ag urine Not Detected (Not Detected)
== END 2021-07-03 12:27 | disposition home or self-care (01) | DRG 139 ==
LOC: HO.ED 16:05 → HO.EDOVER 16:21 → HO.S3 19:45
PROVIDERS: Internal Medicine; Physician Assistant; Admitting Provider Student in an Organized Health Care Education/Training Program; Emergency Provider Emergency Medicine; PCP Family Medicine; Visit Provider Student in an Organized Health Care Education/Training Program
DX: J18.9 Pneumonia, unspecified organism (principal); E87.1 Hypo-osmolality and hyponatremia; E66.9 Obesity, unspecified; Z20.822 Contact with and (suspected) exposure to COVID-19; Z68.32 Body mass index [BMI] 32.0-32.9, adult; Z79.899 Other long term (current) drug therapy
CPT/HCPCS: 0241U; 36415; 71045; 71260; 80048; 80053; 82728; 83605; 83615; 83935; 84300; 85025; 85027; 85379; 85610; 85730; 87040; 87389; 87449; 87651; 87899; 93005; 99285; J0456; J0696; J1650; J1885; Q9967

== ENCOUNTER 2021-07-08 10:57 | Outpatient (REF) | payer MEDICAID, OTHER, SELFPAY ==
--- NOTE | ~2021-07-08 | XR_ITS ---
EXAMINATION: XR CHEST CLINICAL INFORMATION: Hemoptysis COMPARISON: Previous chest x-ray and chest CT June 2021 TECHNIQUE: 2 views of the chest were obtained. FINDINGS: The cardiac and mediastinal contours are stable. The lung volumes are low. There is interval improvement in the right lower lobe airspace disease. The lungs are otherwise clear. There is blunting at the right posterior costophrenic angle questionable for small right pleural effusion. There is no left pleural effusion. Bony structures are unremarkable. XR/XR chest 2V IMPRESSION: Low lung volumes. Improving right lower lobe pneumonia.
[2021-07-08 11:29] LABS: MANUAL DIFF FLAG NO
[2021-07-08 11:47] LABS: Basophils Percent Auto 0.4 % (0-2); Eosinophils Absolute Auto 0.3 X10*3/uL (0.0-0.4); Eosinophils Percent Auto 3.2 % (0-4); Hematocrit 44.1 % (42.0-52.0); Hemoglobin 15.1 g/dl (14.0-18.0); Imm Gran Abs Auto 0.21 X10*3/uL (0.00-0.03); Imm Gran Pct Auto 2.6 % (0.0-0.4); Lymphocytes Absolute Auto 2.3 X10*3/uL (1.2-4.9); Lymphocytes Percent Auto 28.1 % (20-40); Mean Corpuscular HGB Conc 34.2 g/dl (31.0-36.0); Mean Corpuscular Hemoglobin 31.4 pg (27.0-33.0); Mean Corpuscular Volume 91.7 fL (80.0-98.0); Monocytes Absolute Auto 0.5 X10*3/uL (0.1-1.2); Monocytes Percent Auto 6.6 % (2-11); Neutrophils Absolute Auto 4.8 x10*3/uL (2.0-8.3); Neutrophils Percent Auto 59.1 % (45-73); Platelet Count 502 X10*3/uL (160-400); Red Blood Count 4.81 X10*6/uL (4.60-5.80); Red Cell Distribution Width 12.1 % (11.0-16.0); White Blood Count 8.2 X10*3/uL (4.8-10.8)
[2021-07-08 11:50] LABS: INTERNATIONAL NORM RATIO 1.1 (0.9-1.1); Prothrombin Time 12.6 SEC (9.9-13.0)
[2021-07-08 11:52] LABS: D Dimer High Sensitivity 271 NG/ML; Partial Thromboplastin Time 39.1 SEC (24.1-38.0)
[2021-07-08 12:14] LABS: Anion Gap 12 (12-20); Blood Urea Nitrogen 9 mg/dL (9-16); Calcium 9.6 mg/dL (8.4-10.2); Carbon Dioxide 26 mmol/L (22-29); Chloride 103 mmol/L (96-108); Estimated Glomerular Filt Rate > 60; Glucose Random 126 mg/dL (60-115); Potassium 4.6 mmol/L (3.3-5.1); Sodium 136 mmol/L (135-145)
[2021-07-10 19:51] LABS: TS Negative Control Passed; TS Panel A 0; TS Panel B 0; TS Positive Control Passed; TSpotTB Negative (Negative)
== END 2021-07-08 10:58 | disposition home or self-care (01) ==
LOC: HO.XRAY 10:57
PROVIDERS: Absent Provider Family Medicine; PCP Family Medicine; Visit Provider Emergency Medicine
DX: J18.9 Pneumonia, unspecified organism (principal); R04.2 Hemoptysis
CPT/HCPCS: 36415; 71046; 80048; 85025; 85379; 85610; 85730; 86481; 87070; 87205; 88112; 88305

== ENCOUNTER 2023-06-29 19:58 | Emergency (ER) | payer SELFPAY ==
[2023-06-29 20:06] VITALS: BP 144/80; PULSE 92; O2SAT 96
[2023-06-29 20:17] VITALS: BP 132/99; PULSE 78; RESP 20; TEMP 36.2; O2SAT 99; BMI 33.3
[2023-06-29 23:17] VITALS: BP 102/61; PULSE 85; RESP 20; O2SAT 97
--- NOTE | 2023-06-29 23:43 | ED_ITS ---
HPI - Alcohol General Chief Complaint: ETOH/Substance Use Stated Complaint: ETOH Time Seen by Provider: 06/29/23 21:02 History of Present Illness HPI narrative: Patient is 48 years old presents today with having grossly intoxicated. Patient denies any suicidal homicidal ideations has no specific weakness. No nausea or vomiting. Patient is from home. Related Data Previous Rx's Medication Instructions Recorded azithromycin 500 mg tablet 500 mg PO DAILY 5 days #5 tabs 07/03/21 cefuroxime axetil 500 mg tablet 500 mg PO BID #10 tabs 07/03/21 guaifenesin 600 mg tablet, 600 mg PO BID 7 days #14 tabs 07/03/21 extended release 12 hr (Mucinex) Allergies Allergy/AdvReac Type Severity Reaction Status Date / Time No Known Allergies Allergy Verified 06/30/21 13:29 [No Known Allergies*] Review of Systems 2 Review of Systems: No fever no chills no chest pain PMFSH Past Medical History Attestation statement: The following information was validated with the patient. Medical History No known health problems Social History Household Members: Spouse Housing: Apartment Do you presently have visiting nurse or other home services: No Alcohol intake: never Patient Tobacco Use Status: Never used Tobacco Advance Directives: No Advance Directives Information Provided: No service: No Current occupational status: employed Physical Exam ED Vital Signs: Vital Signs - 24 hr 06/29/23 20:17 06/29/23 23:17 06/30/23 02:00 Temperature 97.1 F Pulse Rate 78 85 82 Respiratory Rate 20 20 16 Blood Pressure 132/99 H 102/61 106/85 Pulse Oximetry 99 97 98 Oxygen Delivery Method Room Air Room Air Room Air 06/30/23 04:00 Temperature Pulse Rate 82 Respiratory Rate 20 Blood Pressure 109/76 Pulse Oximetry 97 Oxygen Delivery Method Room Air BMI result Body Mass Index 33.3 Appearance: Alert. Oriented X3. No acute distress. Eyes: Pupils equal, round and reactive to light. ENT: Pharynx normal. Neck: Normal inspection. Neck supple. No lymph nodes noted. No crepitus CVS: Normal heart rate and rhythm. Pulses normal. Normal S1 and S2 Respiratory: No respiratory distress. Breath sounds normal. No Wheezing. No rales Abdomen: Soft and nontender. No rigidity. No distention. good BS x4 Skin: Skin warm and dry. Normal skin color. Normal skin turgor. Extremities: No lower extremity edema. Neurovascular intact to all extremities. No Lacerations. No Rash Neuro: Oriented X 3. No motor deficit. No sensory deficit. Moving all extermities. No slurred speech Medical Decision Making Medical Decision Making [facility] Narrative: Patient awake alert oriented has no specific complaint is not suicidal not homicidal admits to drinking large quantities of alcohol. We will get baseline labs and monitor patient. Patient has no ride home. Patient monitor in the emergency department for many hours. Now clinically sober. Will discharge patient home. Patient is not suicidal not homicidal. Differential Diagnosis Differential Diagnoses: The differential diagnosis associated with the presentation includes Alcohol intoxication Lab Data [facility] Lab Attestation statement: I reviewed the patient's lab results. 06/30/23 00:03 06/30/23 00:03 Labs: Lab Results 06/30/23 Range/Units 00:03 WBC 5.3 (4.8-10.8) X10*3/uL RBC 4.30 L (4.60-5.80) X10*6/uL Hgb 13.7 L (14.0-18.0) g/dl Hct 38.9 L (42.0-52.0) % MCV 90.5 (80.0-98.0) fL MCH 31.9 (27.0-33.0) pg MCHC 35.2 (31.0-36.0) g/dl RDW 11.8 (11.0-16.0) % Plt Count 234 D (160-400) X10*3/uL MPV 9.1 L (9.4-12.4) fL Immature Gran % (Auto) 1.3 H (0.0-0.4) % Neut % (Auto) 61.5 (45-73) % Lymph % (Auto) 30.8 (20-40) % [facility] % (Auto) 5.1 (2-11) % Eos % (Auto) 0.9 (0-4) % Baso % (Auto) 0.4 (0-2) % Lymph # (Auto) 1.6 (1.2-4.9) X10*3/uL [facility] # (Auto) 0.3 (0.1-1.2) X10*3/uL Eos # (Auto) 0.1 (0.0-0.4) X10*3/uL Baso # (Auto) 0.0 (0.0-0.2) X10*3/uL Abs Immat Gran (auto) 0.07 H (0.00-0.03) X10*3/uL Absolute Neuts (auto) 3.3 (2.0-8.3) x10*3/uL Absolute Nucleated RBC 0.000 (0.0-0.012) X10*3/uL Nucleated RBC % (auto) 0.0 (0.0-0.2) /100WBC Sodium 142 (135-145) mmol/L Potassium 3.8 (3.3-5.1) mmol/L Chloride 108 (96-108) mmol/L Carbon Dioxide 23 (22-29) mmol/L Anion Gap 15 (12-20) BUN 9 (9-16) mg/dL Creatinine 0.69 (0.5-1.4) mg/dL Estim Creat Clear Calc 132.5 Estimated GFR > 60 Random Glucose 124 H (60-115) mg/dL Calcium 8.2 L D (8.4-10.2) mg/dL Ethyl Alcohol 263 mg/dL Discharge Plan Discharge Clinical Impression: Alcoholic intoxication Patient Disposition: Home, Self-Care Instructions: Alcohol Intoxication (ED) Additional Instructions: Please go to detox. Please stop drinking alcohol Prescriptions: No Action azithromycin 500 mg tablet 500 mg PO DAILY 5 Days Qty: 5 0RF cefuroxime axetil 500 mg tablet 500 mg PO BID Qty: 10 0RF guaifenesin [Mucinex] 600 mg Tablet Extended Release 12hr 600 mg PO BID 7 Days Qty: 14 0RF Referrals: Physician,Unknown J [Primary Care Provider] - (Please go to detox. Please stop drinking and driving) Print Language: Polish
[2023-06-30 00:08] LABS: MANUAL DIFF FLAG NO
[2023-06-30 00:12] LABS: Basophils Percent Auto 0.4 % (0-2); Eosinophils Absolute Auto 0.1 X10*3/uL (0.0-0.4); Eosinophils Percent Auto 0.9 % (0-4); Hematocrit 38.9 % (42.0-52.0); Hemoglobin 13.7 g/dl (14.0-18.0); Imm Gran Abs Auto 0.07 X10*3/uL (0.00-0.03); Imm Gran Pct Auto 1.3 % (0.0-0.4); Lymphocytes Absolute Auto 1.6 X10*3/uL (1.2-4.9); Lymphocytes Percent Auto 30.8 % (20-40); Mean Corpuscular HGB Conc 35.2 g/dl (31.0-36.0); Mean Corpuscular Hemoglobin 31.9 pg (27.0-33.0); Mean Corpuscular Volume 90.5 fL (80.0-98.0); Mean Platelet Volume 9.1 fL (9.4-12.4); Monocytes Absolute Auto 0.3 X10*3/uL (0.1-1.2); Monocytes Percent Auto 5.1 % (2-11); Neutrophils Absolute Auto 3.3 x10*3/uL (2.0-8.3); Neutrophils Percent Auto 61.5 % (45-73); Platelet Count 234 X10*3/uL (160-400); Red Cell Distribution Width 11.8 % (11.0-16.0); White Blood Count 5.3 X10*3/uL (4.8-10.8)
[2023-06-30 00:24] LABS: Anion Gap 15 (12-20); Blood Urea Nitrogen 9 mg/dL (9-16); Calcium 8.2 mg/dL (8.4-10.2); Carbon Dioxide 23 mmol/L (22-29); Chloride 108 mmol/L (96-108); Creatinine Clr Calc Pharmacy 132.5; Estimated Glomerular Filt Rate > 60; Ethanol 263 mg/dL; Glucose Random 124 mg/dL (60-115); Potassium 3.8 mmol/L (3.3-5.1); Sodium 142 mmol/L (135-145)
[2023-06-30 02:00] VITALS: BP 106/85; PULSE 82; RESP 16; O2SAT 98
[2023-06-30 04:00] VITALS: BP 109/76; PULSE 82; RESP 20; O2SAT 97
--- NOTE | 2023-06-30 05:36 | PC.NURSE ---
pt ambulatory with a steady gait to and from bathroom. speaking clear full sentences in no apparent distress. A&Ox4
== END 2023-06-30 05:40 | disposition home or self-care (01) ==
PROVIDERS: Emergency Provider Emergency Medicine Emergency Medical Services
DX: F10.129 Alcohol abuse with intoxication, unspecified (principal); Y90.8 Blood alcohol level of 240 mg/100 ml or more; Z79.899 Other long term (current) drug therapy
CPT/HCPCS: 36415; 80048; 80307; 85025; 99283; 99284

== ENCOUNTER 2025-01-15 23:14 | Emergency (ER) | payer SELFPAY ==
[2025-01-15 23:25] VITALS: BP 122/72; PULSE 75; RESP 16; TEMP 36.8; O2SAT 96
[2025-01-15 23:30] VITALS: BP 140/88; PULSE 90; O2SAT 96; BMI 35.2
[2025-01-16 00:40] LABS: MANUAL DIFF FLAG NO
[2025-01-16 00:41] LABS: Basophils Percent Auto 0.5 % (0-2); Eosinophils Absolute Auto 0.3 X10*3/uL (0.0-0.4); Eosinophils Percent Auto 4.5 % (0-4); Hematocrit 39.1 % (42.0-52.0); Hemoglobin 13.9 g/dl (14.0-18.0); Imm Gran Abs Auto 0.01 X10*3/uL (0.00-0.03); Imm Gran Pct Auto 0.2 % (0.0-0.4); Lymphocytes Percent Auto 35.1 % (20-40); Mean Corpuscular HGB Conc 35.5 g/dl (31.0-36.0); Mean Corpuscular Hemoglobin 32.9 pg (27.0-33.0); Mean Corpuscular Volume 92.7 fL (80.0-98.0); Mean Platelet Volume 9.9 fL (9.4-12.4); Monocytes Absolute Auto 0.4 X10*3/uL (0.1-1.2); Neutrophils Percent Auto 52.7 % (45-73); Platelet Count 199 X10*3/uL (160-400); Red Blood Count 4.22 X10*6/uL (4.60-5.80); Red Cell Distribution Width 11.9 % (11.0-16.0); White Blood Count 5.6 X10*3/uL (4.8-10.8)
[2025-01-16 01:00] LABS: Alanine Aminotransferase 108 U/L (0-40); Albumin Level 4.4 g/dL (3.5-5.0); Alkaline Phosphatase 107 U/L (39-117); Anion Gap 16 (12-20); Aspartate Amino Transferase 154 U/L (5-37); Bilirubin Total 0.2 mg/dL (0.0-1.0); Blood Urea Nitrogen 5 mg/dL (9-16); Calcium 8.7 mg/dL (8.4-10.2); Carbon Dioxide 21 mmol/L (22-29); Chloride 111 mmol/L (96-108); Creatinine Clr Calc Pharmacy 119.1; Estimated Glomerular Filt Rate > 60; Ethanol 283 mg/dL; Glucose Random 121 mg/dL (60-115); Lipase 37 U/L (8-78); Magnesium 2.1 mg/dL (1.6-2.6); Potassium 3.4 mmol/L (3.3-5.1); Sodium 145 mmol/L (135-145)
[2025-01-16 02:00] VITALS: BP 127/81; PULSE 74; RESP 16; TEMP 36.1; O2SAT 95
--- NOTE | 2025-01-16 03:48 | ED_ITS ---
HPI - General Adult General Chief complaint: ETOH/Substance Use Stated complaint: ETOH CALM COOPERATIVE Time Seen by Provider: 01/15/25 23:30 Source: patient Limitations: language barrier History of Present Illness ED Provider: Jalyn Craig PA-C HPI narrative: 49-year-old male presents intoxicated. Patient was intoxicated in public, EMS was called to the scene, who in turn called PD. Unclear why the patient was brought to the emergency room. Related Data Previous Rx's ?Medication ?Instructions ?Recorded azithromycin 500 mg tablet 500 mg PO DAILY 5 days #5 tabs 07/03/21 cefuroxime axetil 500 mg tablet 500 mg PO BID #10 tabs 07/03/21 guaifenesin 600 mg tablet, 600 mg PO BID 7 days #14 tabs 07/03/21 extended release 12 hr (Mucinex) Allergies Allergy/AdvReac Type Severity Reaction Status Date / Time No Known Allergies Allergy Verified 01/15/25 23:39 [No Known Allergies*] Review of Systems 2 Review of Systems: Patient sleeping, intoxicated, unable to obtain Yes all other systems are reviewed and are negative [facility] Past Medical History Attestation statement: The following information was validated with the patient. Medical History No known health problems Social History Social History Household Members: Spouse Housing: Apartment Do you presently have visiting nurse or other home services: No Unable to assess alcohol history related to: Unknown Alcohol intake: never Patient Tobacco Use Status: Never used Tobacco Do you have a plan to hurt others: No Plan service: No Current occupational status: employed Physical Exam ED Vital Signs: Vital Signs - 24 hr 01/15/25 23:25 Temperature 98.3 F Pulse Rate 75 Respiratory Rate 16 Blood Pressure 122/72 Pulse Oximetry 96 Oxygen Delivery Method Room Air BMI result Body Mass Index 35.2 Const Other: Sleeping, easily woken with verbal stimuli Orientation/consciousness: oriented to person HENMT Other: Alcohol halitosis Resp Effort & Inspection: normal respiratory effort Cardio Other: Normal peripheral perfusion Skin Other: Warm dry no rash Neuro Other: Somewhat unsteady gait General: oriented to person, no focal motor deficits and CN's II-XI intact bilaterally Psych Other: Cooperative in the ER Medical Decision Making Medical Decision Making MDM Narrative: 49-year-old male presents intoxicated. Patient was intoxicated in public, EMS was called to the scene, who in turn called PD. Unclear why the patient was brought to the emergency room. No known chronic issues History: Per EMS I have considered the following differential diagnoses: Alcohol intoxication Plan: Obtaining screening labs in his serum ethanol, the patient will be observed until he is clinically sober. He does not require medical assessment. I have independently reviewed the following tests: Labs: Ethanol to 83, no leukocytosis, not anemic, no electrolyte abnormality Lab Data 01/16/25 00:36 01/16/25 00:36 Labs: Lab Results 01/16/25 Range/Units 00:36 WBC 5.6 (4.8-10.8) X10*3/uL RBC 4.22 L (4.60-5.80) X10*6/uL Hgb 13.9 L (14.0-18.0) g/dl Hct 39.1 L (42.0-52.0) % MCV 92.7 (80.0-98.0) fL MCH 32.9 (27.0-33.0) pg MCHC 35.5 (31.0-36.0) g/dl RDW 11.9 (11.0-16.0) % Plt Count 199 (160-400) X10*3/uL MPV 9.9 (9.4-12.4) fL Immature Gran % (Auto) 0.2 (0.0-0.4) % Neut % (Auto) 52.7 (45-73) % Lymph % (Auto) 35.1 (20-40) % Jones % (Auto) 7.0 (2-11) % Eos % (Auto) 4.5 H (0-4) % Baso % (Auto) 0.5 (0-2) % Lymph # (Auto) 2.0 (1.2-4.9) X10*3/uL Jones # (Auto) 0.4 (0.1-1.2) X10*3/uL Eos # (Auto) 0.3 (0.0-0.4) X10*3/uL Baso # (Auto) 0.0 (0.0-0.2) X10*3/uL Abs Immat Gran (auto) 0.01 (0.00-0.03) X10*3/uL Absolute Neuts (auto) 3.0 (2.0-8.3) x10*3/uL Absolute Nucleated RBC 0.000 (0.0-0.012) X10*3/uL Nucleated RBC % (auto) 0.0 (0.0-0.2) /100WBC Sodium 145 (135-145) mmol/L Potassium 3.4 (3.3-5.1) mmol/L Chloride 111 H (96-108) mmol/L Carbon Dioxide 21 L (22-29) mmol/L Anion Gap 16 (12-20) BUN 5 L (9-16) mg/dL Creatinine 0.65 (0.5-1.4) mg/dL Estim Creat Clear Calc 119.1 Estimated GFR > 60 Random Glucose 121 H (60-115) mg/dL Calcium 8.7 D (8.4-10.2) mg/dL Magnesium 2.1 (1.6-2.6) mg/dL Total Bilirubin 0.2 (0.0-1.0) mg/dL AST 154 H (5-37) U/L ALT 108 H (0-40) U/L Alkaline Phosphatase 107 (39-117) U/L Total Protein 7.0 (6.5-8.0) g/dL Albumin 4.4 (3.5-5.0) g/dL Lipase 37 (8-78) U/L Ethyl Alcohol 283 mg/dL Discharge Plan Discharge Clinical Impression: Alcoholic intoxication Patient Disposition: Home, Self-Care Instructions: Alcohol Intoxication (ED) Additional Instructions: You were monitored in the emergency department for your safety until you were clinically sober. Prescriptions: No Action azithromycin 500 mg tablet 500 mg PO DAILY 5 Days Qty: 5 0RF cefuroxime axetil 500 mg tablet 500 mg PO BID Qty: 10 0RF guaifenesin [Mucinex] 600 mg Tablet Extended Release 12hr 600 mg PO BID 7 Days Qty: 14 0RF Print Language: Polish
[2025-01-16 04:55] VITALS: BP 125/87; PULSE 84; RESP 18; TEMP 36.1; O2SAT 97
--- OUTSIDE RECORDS SUMMARY | 2025-01-16 05:22 | XMS_ITS | Clinical Summary ---
Author Organization [facility] Address [address] [place] [address] Care Team Providers Care Cath Lab Name Role Phone Adriana Pollack Jane Primary Care Provider [phone] Allergies No known active allergies Medications No known medications Social History Tobacco Use Types Packs/Day Years Used Date Smoking Tobacco: Never Smokeless Tobacco: Never Sex and Gender Information Value Date Recorded Sex Assigned at Not on file Legal Sex Male 11:37 AM EST Gender Identity Not on file Sexual Orientation Not on file Last Filed Vital Signs Vital Sign Reading Time Taken Comments Blood Pressure 136/92 12/09/2020 8:38 AM EDT Pulse 66 12/09/2020 8:38 AM EDT Temperature - - Respiratory Rate - - Oxygen Saturation - - Inhaled Oxygen Concentration - - Weight - - Height - - Body Mass Index - - Plan of Treatment Health Maintenance Due Date Last Done Comments Beto 1973 Colon Cancer Screening 1973 Colonoscopy 1973 FOBT / Fit Test 1973 HIV Screening 1973 Sigmoidoscopy 1973 Hepatitis B Vaccines (1 of 3 - 19+ 3-dose series) 1992 Pneumococcal Vaccine: 50+ Ye ars (1 of 1 - PCV) 2023 Zoster Vaccines (1 of 2) 2023 COVID-19 Vaccine (3 - 2023- season) 2024, 03/29/2021 Alcohol/Substance Use Screening 08/09/2024 Influenza Vaccine (Season Ended) 2025 09/20/2020, 06/20/2019, 09/18/2015 DTaP,Tdap,and Td Vaccines (2 - Td or Tdap) 11/19/2025 11/20/2015, 02/07/2008 RSV Vaccine (60+ years old a nd patients) (1 - 1-dose 75+ series) 2048 Insurance [employer] HSNO/FREE CARE Care Teams Cath Lab Relationship Specialty Start Date End Date Adriana Pollack [address] [place] [id number] PCP - General Family Medicine 10/15/20
--- NOTE | 2025-01-16 05:25 | PC.NURSE ---
0500: patient awake and alert. looking for exit to ED. gait was steady. patient stated he has to go to work. per PA patient was ok to be dc once awake. dc papers given and patient ambulated with steady gait to exit.
== END 2025-01-16 05:12 | disposition home or self-care (01) ==
LOC: HO.ED 01-16 05:19
PROVIDERS: Physician Assistant Medical; Emergency Provider Emergency Medicine
DX: F10.129 Alcohol abuse with intoxication, unspecified (principal); Y90.8 Blood alcohol level of 240 mg/100 ml or more; Z51.81 Encounter for therapeutic drug level monitoring; Z79.899 Other long term (current) drug therapy
CPT/HCPCS: 36415; 80053; 80307; 83690; 83735; 85025; 99282; 99283